=== PATIENT | male | born 1965 | race Caucasian/White ===

== ENCOUNTER 2020-10-18 14:12 | Emergency (ER) | payer OTHER ==
[2020-10-18 14:35] VITALS: BP 140/86
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
== END 2020-10-18 17:08 | disposition home or self-care (01) ==
LOC: ER 14:12
DX: M54.42 Lumbago with sciatica, left side (principal); R20.0 Anesthesia of skin; V87.7XXA Person injured in collision between other specified motor vehicles (traffic), initial encounter; Z88.8 Allergy status to other drugs, medicaments and biological substances
CPT/HCPCS: 72110; 99283